=== PATIENT | female | born 1980 | race Caucasian/White ===

== ENCOUNTER → 2016-11-12 | Outpatient (CLI) | payer OTHER ==
--- NOTE | 2016-11-13 11:43 | WWHP ---
DATE OF SERVICE: 11/12/16 CHIEF COMPLAINT: The patient is here for her routine gynecological exam and mammogram. HISTORY OF PRESENT ILLNESS: This is a 36-year-old G3, P2, 0, 1, 2 with an LMP of 10/20/16. She is using condoms for control. She states she had an abnormal mammogram about three years ago. She had a screening mammogram at age 33 because of her family history of breast cancer. Right sided workup was felt to benign but she was supposed to have a six month mammogram on the right side which she did not have done. She states her left breast seems to have grown compared to the right breast. She has noticed this increase in size over the last three months. She does believe her left breast always was slightly larger than the right side but it has become more pronounced during the past three months. She thinks she may have noticed a slight discharge from the breast when she was in the shower once or twice but there was no blood. She denies any leakage without any type of breast stimulation. She also has noticed that both breasts have been more sore during the past few months and the soreness is greater on the left side. PAST MEDICAL HISTORY: Unremarkable. Medications: Multivitamin daily. ALLERGIES: VICODIN which caused vomiting and dizziness. PAST SURGICAL HISTORY: times two in 2010 and 2015. PAST OB HISTORY: Two C-sections and one spontaneous in 2011. PAST BAGGAGE SCREENER HISTORY: She did have laser removal of genital warts in 1997 and denies any other STDs. Menses are regular every month. SOCIAL HISTORY: She denies tobacco and drug use and has 0 to 1 alcoholic drinks per month. She is single but has been with her boyfriend since about 2008 and lives with him. 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 FAMILY HISTORY: She has two grandmothers who had breast cancer in their 30s. Also a sister who had skin cancer. Father had COPD and a grandmother had diabetes. REVIEW OF SYSTEMS: Weight has been stable. She denies respiratory, cardiac or GI problems. PHYSICAL EXAM: Blood pressure 124/70. Height 5 feet 2 1/2 inches. Weight 204 pounds. Temperature 96.7. Pulse 68. This is a well developed, heavyset white female who is alert and oriented times three in no acute distress. HEENT: is within normal limits. Neck is supple without mass or thyromegaly. Chest and lungs clear to auscultation. Heart is regular rate and rhythm. Breasts: Without mass or discharge. The left breast is slightly greater than the left breast. There are no palpable masses. There is no unusual puckering or dimpling. Both breasts are minimally tender. Axillary exam is negative for adenopathy. Back negative for CVA tenderness. Abdomen is soft and nontender without palpable masses. Pelvic exam, normal external genitalia. Cervix and vagina appears normal. There is no evidence of prolapse. Uterus is mid position, multiparous, nongravid size and nontender. There are no palpable adnexal masses or tenderness. Rectal exam negative for mass or tenderness. Extremities nontender. IMPRESSION: 1. A 36 year old menopausal female with normal gynecological exam. 2. History of abnormal mammogram in 2013 without the recommended follow-up. 3. The patient feels the left breast has grown disproportionately larger than the right breast without any significant physical findings other than the left breast being slightly larger than the right breast. 4. Bilateral breast soreness which has been fairly constant during the past two to three months per the patient. PLAN: 1. Pap smear was performed. 2. Self breast examination was discussed. 3. Bilateral diagnostic mammogram will be done because of the breast soreness and changes noted by the patient as well as family history. 4. We have discussed the various options for control including male and female sterilization as well as oral contraception. The patient would like to continue using condoms at this time, but will let me know if she is interested in any other method of control. 5. She will return in one year and prn. MTDD
== END | disposition home or self-care (01) ==
LOC: WWCWWP 15:10
PROVIDERS: ATTEND Obstetrics & Gynecology
DX: Z01.419 Encounter for gynecological examination (general) (routine) without abnormal findings (principal)

== ENCOUNTER → 2016-11-19 | Outpatient (CLI) | payer OTHER ==
--- NOTE | 2016-11-20 07:03 | MM ---
Reason for exam: clinical finding. Last mammogram was performed 3 years and 3 months ago. History: Patient had first child at age 30. Family history of breast cancer in paternal grandmother at age 40. Indicated problem(s): pain in both breasts. Physical Findings: Nurse did not find any significant physical abnormalities on exam. MG Diagnostic Mammo w CAD CHHAYA Bilateral CC and MLO view(s) were taken. Prior study comparison: August 26, 2013, right breast MG work up mamm w CAD RT. August 20, 2013, bilateral MG screening mammo w CAD. There are scattered fibroglandular densities. There is no discrete abnormality. No significant new findings when compared with previous films. These results were verbally communicated with the patient and result sheet given to the patient on 11/19/16. ASSESSMENT: Negative, BI-RAD 1 RECOMMENDATION: Routine screening mammogram of both breasts at age 38. Manage patient on a clinical basis.
== END | disposition home or self-care (01) ==
LOC: RADMAMWWP 14:17
PROVIDERS: ATTEND Obstetrics & Gynecology
DX: N64.4 Mastodynia (principal)

== ENCOUNTER → 2018-01-20 | Outpatient (CLI) | payer OTHER ==
[2018-01-20 13:02] VITALS: BP 118/72; PULSE 79; TEMP 96.6; BMI 34.2
--- NOTE | 2018-01-20 14:00 | P.HPOB ---
History of Present Illness H&P Date: 01/20/18 Chief Complaint: The patient is here for her routine gynecologic exam and mammogram. This is a 37-year-old with an LMP of 01/19/2018. Patient had a LGSIL Pap smear last year and underwent a colposcopic examination on 12/15/2016 which showed low grade ISAIAH with biopsy. The patient states she has had a history of dyspareunia since her 8 years ago. She states her partner would cause discomfort when his penis was not anterior or posterior in the vagina. One time when it did cause discomfort, the patient suddenly no longer had this type of dyspareunia except with very deep penetration. Now she only notices it occasionally with deep penetration. She is interested in getting something for control, but does not want to take control pills since she often forgot to take the pills. Review of Systems The patient has lost 17 pounds over the last year. She denies respiratory, cardiac, or G.I. problems. Past Medical History Past Medical History: Asthma History of Any Multi-Drug Resistant Organisms: None Reported Past Surgical History: Section (x2) Past Anesthesia/Blood Transfusion Reactions: No Reported Reaction Past Psychological History: No Psychological Hx Reported Smoking Status: Never smoker Past Alcohol Use History: None Reported Past Drug Use History: None Reported Additional History: She's been with her boyfriend since 2008 and lives with him. 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 - Past Family History Mother Family Medical History: No Reported History Additional Family Medical History / Comment(s): Maternal grandmother had breast cancer. Father Family Medical History: No Reported History Additional Family Medical History / Comment(s): Paternal grandmother and breast cancer. Sister(s) Family Medical History: Cancer (Skin cancer) Medications and Allergies Home Medications Medication Instructions Recorded Confirmed Type Multivitamin [Multivitamins Adult PO DAILY 01/20/18 History Gummies] Phentermine HCl [Adipex P] PO DAILY 01/20/18 History Allergies Allergy/AdvReac Type Severity Reaction Status Date / Time acetaminophen [From Vicodin] AdvReac Nausea Verified 01/20/18 12:59 hydrocodone bitartrate AdvReac Nausea Verified 01/20/18 12:59 [From Vicodin] Exam Vital Signs Temp Pulse BP 01/20/18 13:00 96.6 F L 79 118/72 Intake and Output 01/19/18 01/20/18 01/20/18 22:59 06:59 14:59 Other: Weight 84.822 kg Height 5'2", weight 187 pounds, BMI 34.2. This is a well-developed well-nourished white female who is alert and oriented times 3 in no acute distress. HEENT: Within normal limits. NECK: Supple without mass or thyromegaly. CHEST AND LUNGS: Clear to auscultation. HEART: Regular rate and rhythm. BREASTS: Are without mass or discharge. AXILLARY EXAM: Negative for adenopathy. BACK: Negative for CVA tenderness. ABDOMEN: Soft, nontender, without palpable masses. PELVIC EXAM: Normal external genitalia. Cervix and vagina appear normal with small menstrual blood in the back of the vagina. There is no cervical motion tenderness. There is no unusual discharge. There is no evidence of prolapse. The uterus is midposition, nongravid size and nontender. There are no palpable adnexal masses or tenderness. RECTAL EXAM: negative for mass or tenderness . EXTREMITIES: Nontender. IMPRESSION: 1. 37-year-old female with normal gynecologic exam requesting control. 2. Occasional deep dyspareunia which is actually improved recently. 3. Previous low-grade ISAIAH Pap smear and colposcopy 1 year ago. 4. Family history of breast cancer in both grandmothers. PLAN: 1. Pap smear was performed because of her low-grade ISAIAH findings last year. 2. Self breast awareness was discussed with the patient. 3. Screening mammogram will be done today because of her family history. 4. Negative Valsalva exercises prior to sexual activity. If she continues to have deep dyspareunia, she was instructed to call. We'll consider pelvic ultrasound if this is the case. 5. We discussed various options for control including IUD, Nuvaring, and control pills. We also discussed male and female sterilization. She would like a trial of the Nuvaring. She was counseled on how to use this for control. She will start this today. We have discussed possible risks including slight risk for blood clots. The electronic prescription will be sent to [facility] pharmacy. 6. She will return in one year and PRN.
--- NOTE | 2018-01-22 09:32 | MM ---
Reason for exam: screening (asymptomatic). Last mammogram was performed 1 year and 2 months ago. History: Patient had first child at age 30. Family history of breast cancer in paternal grandmother at age 40. Physical Findings: A clinical breast exam by your physician is recommended on an annual basis and results should be correlated with mammographic findings. MG Screening Mammo w CAD Bilateral CC and MLO view(s) were taken. Prior study comparison: November 19, 2016, bilateral MG diagnostic mammo w CAD CHHAYA. August 26, 2013, right breast MG work up mamm w CAD RT. There are scattered fibroglandular densities. No suspicious abnormality. No significant changes when compared with prior studies. ASSESSMENT: Negative, BI-RAD 1 RECOMMENDATION: Routine screening mammogram of both breasts in 1 year.
== END | disposition home or self-care (01) ==
LOC: WWCWWP 12:33
PROVIDERS: ATTEND Obstetrics & Gynecology
DX: Z12.31 Encounter for screening mammogram for malignant neoplasm of breast (principal)
CPT/HCPCS: 77067

== ENCOUNTER → 2019-03-03 | Outpatient (CLI) | payer OTHER ==
[2019-03-03 10:58] VITALS: BP 118/84; PULSE 67; RESP 16; TEMP 98.1
--- NOTE | 2019-03-03 11:40 | P.HPOB ---
History of Present Illness H&P Date: 03/03/19 Chief Complaint: The patient is here for her routine gynecologic exam and ma mmogram. This is a 38-year-old 012 with an LMP of 02/28/2019. The patient had used the NuvaRing for control, but did run out a few months ago. She would like to be restarted on the NuvaRing. She is without gynecologic complaints. She had a previous low-grade ISAIAH colposcopic biopsy in 2017. This was followed conservatively. Her last Pap smear on 01/20/2018 with cytology only and was negative. Review of Systems The patient has lost 3 pounds over the past year. She denies respiratory or cardiac problems. GI: Occasionally feels gassy. Past Medical History Past Medical History: Asthma Additional Past Medical History / Comment(s): Ovarian cyst, UTI. 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 History of Any Multi-Drug Resistant Organisms: None Reported Past Surgical History: Section Additional Past Surgical History / Comment(s): C section x 2 Past Anesthesia/Blood Transfusion Reactions: No Reported Reaction Past Psychological History: No Psychological Hx Reported Additional Psychological History / Comment(s): Pt resides with her significant other and 2 children, ages 2 yrs and 7 yrs. Pt is employed at [employer]. Smoking Status: Never smoker Past Alcohol Use History: Rare (1 per month) Past Drug Use History: None Reported Additional History: She lives with her boyfriend and has been with him since 2008. 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 - Past Family History Mother Family Medical History: No Reported History Additional Family Medical History / Comment(s): Maternal grandmother had breast cancer. Father Family Medical History: Congestive Heart Failure (CHF), COPD Additional Family Medical History / Comment(s): Paternal grandmother and breast cancer. Sister(s) Family Medical History: Cancer Additional Family Medical History / Comment(s): Skin cancer. Medications and Allergies Home Medications Medication Instructions Recorded Confirmed Type Cetirizine HCl [Zyrtec] 10 mg PO DAILY PRN 02/24/18 03/03/19 History Multivitamin,Therapeutic [Thera] 1 tab PO DAILY 02/24/18 03/03/19 History Ascorbic Acid [Vitamin C] 500 mg PO DAILY 03/03/19 03/03/19 History Allergies Allergy/AdvReac Type Severity Reaction Status Date / Time acetaminophen [From Vicodin] AdvReac Nausea Verified 03/03/19 10:58 hydrocodone bitartrate AdvReac Nausea Verified 03/03/19 10:58 [From Vicodin] Exam Vital Signs Temp Pulse Resp BP Pulse Ox 03/03/19 10:53 98.1 F 67 16 118/84 100 Intake and Output 03/02/19 03/03/19 03/03/19 22:59 06:59 14:59 Other: Weight 83.461 kg Height 5 feet 2 inches, weight 184 pounds, BMI 33.7. This is a well-developed well-nourished white female who is alert and oriented times 3 in no acute distress. HEENT: Within normal limits. NECK: Supple without mass or thyromegaly. CHEST AND LUNGS: Clear to auscultation. HEART: Regular rate and rhythm. BREASTS: Are without mass or discharge. AXILLARY EXAM: Negative for adenopathy. BACK: Negative for CVA tenderness. ABDOMEN: Soft, nontender, without palpable masses. PELVIC EXAM: Normal external genitalia. Cervix and vagina appear normal. There is a small amount of menstrual blood. There is no unusual discharge. There is no evidence of prolapse. The uterus is midposition, nongravid size and nontender. There are no palpable adnexal masses or tenderness. RECTAL EXAM: negative for mass or tenderness and is negative for occult blood. EXTREMITIES: Nontender. IMPRESSION: 1. 38-year-old female with normal gynecologic exam. 2. The patient is requesting to be restarted on the NuvaRing for control. She stopped it after her prescription ran out. 3. History of low-grade ISAIAH colposcopic biopsy in 2017. Her last Pap smear was cytology only on 01/20/2018 and was negative. PLAN: 1. Pap smear with high-risk HPV testing will be done today (cotest). If both of these are negative, we will repeat Pap smear in 2-3 years. 2. Self breast awareness was discussed with the patient. 3. Screening mammogram will be done today. 4. The patient will be restarted on the NuvaRing. She will one in today since she is on her menstrual period which started 3 days ago. She was advised to use an alternate method of control during the first month since she is not starting at on the first day of her menstrual period. She will use it as directed. The prescription will be sent to my her pharmacy in [place]. 5. She was advised to return in one year for her annual well woman exam.
--- NOTE | 2019-03-05 12:25 | MM ---
Reason for exam: screening (asymptomatic). Last mammogram was performed 1 year and 1 month ago. History: Patient had first child at age 30. Family history of breast cancer in paternal grandmother at age 40. Physical Findings: A clinical breast exam by your physician is recommended on an annual basis and results should be correlated with mammographic findings. MG Screening Mammo w CAD Bilateral CC and MLO view(s) were taken. Prior study comparison: January 20, 2018, bilateral MG screening mammo w CAD. November 19, 2016, bilateral MG diagnostic mammo w CAD CHHAYA. The breast tissue is heterogeneously dense. This may lower the sensitivity of mammography. No significant changes when compared with prior studies. ASSESSMENT: Benign, BI-RAD 2 RECOMMENDATION: Routine screening mammogram of both breasts in 1 year.
--- NOTE | 2019-03-16 10:30 | P.PN ---
Progress Note - Text Progress Note Date: 03/16/19 OUTPATIENT FOLLOW-UP NOTE TEST(S)/RESULTS: test results from 03/03/2019 include benign mammogram and Pap smear showing ASCUS with negative high risk HPV. METHOD OF NOTIFICATION: the patient was notified by phone. PATIENT COMMENTS: DIAGNOSIS: ASCUS Pap smear with negative high-risk HPV testing. DISCUSSION: the patient had a previous low-grade ISAIAH Pap smear in 2017 and colposcopic biopsy also showed low-grade ISAIAH. Pap smear cytology alone last year was negative. With the history of previous low-grade IASIAH by colposcopic biopsy in 2017 and negative Pap smear last year, we have decided to repeat the Pap smear with high-risk HPV testing in 1 year. PLAN: She was advised to return in one year for her annual well woman exam. Co- test pap in one year.
== END | disposition home or self-care (01) ==
LOC: WWCWWP 10:48
PROVIDERS: ATTEND Obstetrics & Gynecology
DX: Z12.31 Encounter for screening mammogram for malignant neoplasm of breast (principal)
CPT/HCPCS: 77067

== ENCOUNTER → 2021-06-12 | Outpatient (CLI) | payer OTHER ==
[2021-06-12 12:58] VITALS: BP 111/76; PULSE 74; RESP 17; TEMP 98.5
--- NOTE | 2021-06-12 13:48 | P.HPOB ---
History of Present Illness H&P Date: 06/12/21 Chief Complaint: The patient is here for her routine gynecologic exam and ma mmogram. This is a 40-year-old 012 with an LMP of 06/07/2021. The patient has been using condoms for control. She no longer is using the NuvaRing ring. The patient states she has had deep dyspareunia for many years. She believes this has been since her first delivery 11 years ago. It seems to be only with deep penetration and is felt in the midline. This can last for a few minutes. Occasionally she will notice a similar type of pain when she is laughing or sitting in a certain position. She did not notice any difference when she was using the NuvaRing for control. She denies any GI or urinary symptoms. Review of Systems She is getting about 9 pounds over the past 2 years. She denies respiratory, cardiac, or GI problems. 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 History of Any Multi-Drug Resistant Organisms: None Reported Past Surgical History: Section Additional Past Surgical History / Comment(s): C section x 2 Past Anesthesia/Blood Transfusion Reactions: No Reported Reaction Past Psychological History: No Psychological Hx Reported Additional Psychological History / Comment(s): Pt resides with her significant other and 2 children, ages 2 yrs and 7 yrs. Pt is employed at [employer]. Smoking Status: Never smoker Past Alcohol Use History: Rare (1 per month) Past Drug Use History: None Reported Additional History: She lives with her boyfriend and has been with him since 2008. 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 - Past Family History Mother Family Medical History: No Reported History Additional Family Medical History / Comment(s): Maternal grandmother had breast cancer. Father Family Medical History: Congestive Heart Failure (CHF), COPD Additional Family Medical History / Comment(s): Paternal grandmother and breast cancer. Sister(s) Family Medical History: Cancer Additional Family Medical History / Comment(s): Skin cancer. Medications and Allergies Home Medications Medication Instructions Recorded Confirmed Type Cetirizine HCl [Zyrtec] 10 mg PO DAILY PRN 02/24/18 06/12/21 History Multivitamin,Therapeutic [Thera] 1 tab PO DAILY 02/24/18 06/12/21 History Ascorbic Acid [Vitamin C] 500 mg PO DAILY 03/03/19 06/12/21 History Allergies Allergy/AdvReac Type Severity Reaction Status Date / Time acetaminophen [From Vicodin] AdvReac Nausea Verified 06/12/21 12:51 hydrocodone bitartrate AdvReac Nausea Verified 06/12/21 12:51 [From Vicodin] Exam Vital Signs Temp Pulse Resp BP Pulse Ox 06/12/21 12:55 98.5 F 74 17 111/76 100 Intake and Output 06/11/21 06/12/21 06/12/21 22:59 06:59 14:59 Other: Weight 88.451 kg Height 5 feet 2 inches, weight 195 pounds, BMI 35.7. This is a well-developed well-nourished white female who is alert and oriented times 3 in no acute distress. HEENT: Within normal limits. NECK: Supple without mass or thyromegaly. CHEST AND LUNGS: Clear to auscultation. HEART: Regular rate and rhythm. BREASTS: Are without mass or discharge. AXILLARY EXAM: Negative for adenopathy. BACK: Negative for CVA tenderness. ABDOMEN: Soft, with minimal suprapubic tenderness, without palpable masses. PELVIC EXAM: Normal external genitalia. Cervix and vagina appear normal. There is a small amount of old menstrual blood in the vagina. There is no unusual discharge. There is no evidence of prolapse. The uterus is midposition, nongravid size and nontender. There are no palpable adnexal masses or tenderness. The pain associated with deep penetration could not be reproduced. RECTAL EXAM: Rectovaginal exam is negative for mass or tenderness and is negative for occult blood. EXTREMITIES: Nontender. IMPRESSION: 1. 40-year-old female using condoms for control, with long history of intermittent deep dyspareunia. There are no significant physical findings on exam today. 2. Previous Pap smear showing ASCUS with negative high-risk HPV testing on 03/03/2019. PLAN: 1. Pap smear cotest was performed. 2. Self breast awareness was discussed with the patient. We have also discussed symptoms associated with inflammatory breast cancer. 3. Screening mammogram will be done today. 4. Pelvic ultrasound will be ordered. The order slip was given to the patient for this. 5. We have discussed possible causes for deep dyspareunia ranging from uterine fibroid, ovarian cyst, minor trauma to the cervix causing ligament stretch, adhesions, endometriosis, as well as other non-gynecologic causes. If the ultrasound is unremarkable, consider referral for possible laparoscopic examination. 6. She was advised to return in one year for her annual well woman exam and as needed.
--- NOTE | 2021-06-13 13:56 | MM ---
Reason for exam: screening (asymptomatic). Last mammogram was performed 2 years and 3 months ago. History: Patient had first child at age 30. Family history of breast cancer in paternal grandmother at age 40. Physical Findings: A clinical breast exam by your physician is recommended on an annual basis and results should be correlated with mammographic findings. MG Screening Mammo w CAD Bilateral CC and MLO view(s) were taken. Prior study comparison: March 03, 2019, bilateral MG screening mammo w CAD. January 20, 2018, bilateral MG screening mammo w CAD. The breast tissue is heterogeneously dense. This may lower the sensitivity of mammography. There is no discrete abnormality. No significant changes when compared with prior studies. ASSESSMENT: Negative, BI-RAD 1 RECOMMENDATION: Routine screening mammogram of both breasts in 1 year.
== END | disposition home or self-care (01) ==
LOC: WWCWWP 12:45
PROVIDERS: ATTEND Obstetrics & Gynecology
DX: Z12.31 Encounter for screening mammogram for malignant neoplasm of breast (principal)
CPT/HCPCS: 77067

== ENCOUNTER → 2021-08-03 | Outpatient (CLI) | payer OTHER ==
--- NOTE | 2021-08-03 14:51 | US ---
EXAMINATION TYPE: US pelvic complete DATE OF EXAM: 08/03/2021 COMPARISON: NONE CLINICAL HISTORY: N94.1 Dyspareunia. Pain during intercourse x 11 years, 3, para 2, miscarria ge 1, history of 2 c-sections. TECHNIQUE: . Transabdominal sonographic images of the pelvis were acquired. Date of LMP: 07/27/2021 EXAM MEASUREMENTS: Uterus: 8.4 x 3.9 x 4.9 cm Endometrial Stripe: 0.7 cm Right Ovary: 3.1 x 1.6 x 2.1 cm Left Ovary: 2.8 x 1.7 x 1.8 cm 1. Uterus: anteverted 2. Endometrium: wnl 3. Right Ovary: wnl 4. Left Ovary: wnl 5. Bilateral Adnexa: wnl 6. Posterior cul-de-sac: wnl IMPRESSION: No significant abnormality seen.
== END | disposition home or self-care (01) ==
LOC: RADUSWWP 14:08
PROVIDERS: ATTEND Obstetrics & Gynecology
DX: N95.1 Menopausal and female climacteric states (principal)
CPT/HCPCS: 76856

== ENCOUNTER → 2022-11-07 | Outpatient (CLI) | payer OTHER ==
--- NOTE | 2022-11-07 14:42 | P.PN ---
Progress Note - Text Progress Note Date: 11/07/22 The patient has called today requesting to be restarted on oral contraception. She has been on oral contraception without problems in the past. She states she is in a new relationship and she would like to restart control pills for this reason. Her menstrual periods are regular every month. Her LMP was on 10/19/2022. She expects her next menstrual period to be next week. She denies any medical problems including hypertension or blood clots. We have discussed oral contraception including possible side effects such as nausea, breast tenderness, and headache. We will also discussed possible risks such as blood clots in the leg or lung, as well as heart attack and stroke. She denies smoking. The patient will be started on Tri-Sprintec one by mouth daily. She is to start the first pack on the Friday following the onset of her next normal menstrual period. I recommended that she use condoms. She understands she may not be fully protected during the first pack of pills. All of her questions were answered. She also has an annual exam appointment on 11/26/2022. The electronic prescription for Tri-Sprintec will be sent to my her pharmacy in [place]. This will be for one pack. We will plan on refilling the prescription at the time of her annual examination.
== END ==
LOC: WWCWWP 14:37
PROVIDERS: ATTEND Obstetrics & Gynecology
DX: Z04.89 Encounter for examination and observation for other specified reasons (principal); Z88.5 Allergy status to narcotic agent; Z88.8 Allergy status to other drugs, medicaments and biological substances

== ENCOUNTER → 2022-11-26 | Outpatient (CLI) | payer OTHER ==
[2022-11-26 15:22] VITALS: BP 124/86; PULSE 54; RESP 17; TEMP 98.1
--- NOTE | 2022-11-26 16:12 | P.HPOB ---
History of Present Illness H&P Date: 11/26/22 Chief Complaint: The patient is here for her routine gynecologic exam and ma mmogram. This is a 42-year-old 012 with an LMP of 11/16/2022. She is on oral contraception for control. This was started earlier this month. She is without gynecologic complaints. Review of Systems The patient has lost 8 pounds over the last year. She denies respiratory, cardiac, or G.I. problems. 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 History of Any Multi-Drug Resistant Organisms: None Reported Past Surgical History: Section Additional Past Surgical History / Comment(s): C section x 2 Past Anesthesia/Blood Transfusion Reactions: No Reported Reaction Past Psychological History: No Psychological Hx Reported Additional Psychological History / Comment(s): Pt resides with her significant other and 2 children, ages 2 yrs and 7 yrs. Pt is employed at [employer]. Smoking Status: Never smoker Past Alcohol Use History: Occasional (1 or 2 per week.) Past Drug Use History: None Reported Additional History: She has been with her boyfriend since September 2022. She does not live with him. 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 - Past Family History Mother Family Medical History: No Reported History Additional Family Medical History / Comment(s): Maternal grandmother had breast cancer. Father Family Medical History: Congestive Heart Failure (CHF), COPD Additional Family Medical History / Comment(s): Paternal grandmother and breast cancer. Sister(s) Family Medical History: Cancer Additional Family Medical History / Comment(s): Skin cancer. Medications and Allergies Home Medications Medication Instructions Recorded Confirmed Type Cetirizine HCl [Zyrtec] 10 mg PO DAILY PRN 02/24/18 11/26/22 History Multivitamin,Therapeutic [Thera] 1 tab PO DAILY 02/24/18 11/26/22 History Ascorbic Acid [Vitamin C] 500 mg PO DAILY 03/03/19 11/26/22 History norgestimate-ethinyl estradioL 1 each PO DAILY #28 tablet 11/07/22 11/26/22 Rx [Tri-Sprintec Tablet] Allergies Allergy/AdvReac Type Severity Reaction Status Date / Time acetaminophen [From Vicodin] AdvReac Nausea Verified 11/26/22 15:15 hydrocodone bitartrate AdvReac Nausea Verified 11/26/22 15:15 [From Vicodin] Exam Vital Signs Temp Pulse Resp BP Pulse Ox 11/26/22 15:19 98.1 F 54 L 17 124/86 99 Intake and Output 11/26/22 11/26/22 11/26/22 06:59 14:59 22:59 Other: Weight 84.822 kg Height 5 feet 2 inches, weight 187 pounds, BMI 34.2. This is a well-developed well-nourished white female who is alert and oriented times 3 in no acute distress. HEENT: Within normal limits. NECK: Supple without mass or thyromegaly. CHEST AND LUNGS: Clear to auscultation. HEART: Regular rate and rhythm. BREASTS: Are without mass or discharge. AXILLARY EXAM: Negative for adenopathy. BACK: Negative for CVA tenderness. ABDOMEN: Soft, nontender, without palpable masses. PELVIC EXAM: Normal external genitalia. Cervix and vagina appear normal. There is no unusual discharge. There is no evidence of prolapse. The uterus is midposition, nongravid size and nontender. There are no palpable adnexal masses or tenderness. RECTAL EXAM: negative for mass or tenderness and is negative for occult blood. EXTREMITIES: Nontender. IMPRESSION: 1. 42-year-old female on oral contraception with normal gynecologic exam. 2. Previous colposcopic examination in 2018 showing low-grade ISAIAH with negative Pap smear in 2018, ASCUS Pap smear with negative HPV testing in 2019 and 2021. PLAN: 1. Pap smear cotest was performed as per the ASCCP management guidelines. 2. Self breast awareness was discussed with the patient. We have also discussed symptoms associated with inflammatory breast cancer. 3. Screening mammogram was done today. 4. STD prevention was discussed. I have stressed importance of limiting sexual partners and I recommended condom use if she is sexually active. 5. She will continue oral contraception. We have reviewed the importance of not smoking. We have also discussed the slight increased risk for blood clots with oral contraception. The prescription for Tri-Sprintec will be sent to [facility] pharmacy in [place]. 6. She was advised to return in one year for her annual well woman exam.
--- NOTE | 2022-11-27 10:09 | MM ---
Reason for Exam: Screening (asymptomatic). Last mammogram was performed 1 year(s) and 5 month(s) ago. Patient History: Menarche at age 9. First Full-Term at age 30. Late child-bearing (after 30). Paternal grandmother had breast cancer, age 40. Risk Values: Donna 5 year model risk: 1.2%. NCI Lifetime model risk: 14.3%. Prior Study Comparison: 01/20/2018 Bilateral Screening Mammogram, [facility]. 03/03/2019 Bilateral Screening Mammogram, [facility]. 06/12/2021 Bilateral Screening Mammogram, [facility]. Tissue Density: The breast tissue is heterogeneously dense. This may lower the sensitivity of mammography. Findings: Analyzed By CAD. There is no suspicious group of microcalcifications or new suspicious mass in either breast. Overall Assessment: Negative, BI-RAD 1 Management: Screening Mammogram of both breasts in 1 year. A clinical breast exam by your physician is recommended on an annual basis and results should be correlated with mammographic findings. Note on Donna scores and lifetime risk: 1. A Donna score greater than 3% is considered moderate risk. If this is the case, consider specialist referral to assess eligibility for a risk reducing agent. If overall lifetime risk for the development of breast cancer is 20% or higher, the patient may qualify for future screening with alternating mammogram and breast MRI. Electronically signed and approved by: Davi Coleman D.O.
== END | disposition home or self-care (01) ==
LOC: RADMAMWWP 14:42
PROVIDERS: ATTEND Obstetrics & Gynecology
DX: Z01.419 Encounter for gynecological examination (general) (routine) without abnormal findings (principal); Z12.31 Encounter for screening mammogram for malignant neoplasm of breast; Z80.3 Family history of malignant neoplasm of breast; Z82.49 Family history of ischemic heart disease and other diseases of the circulatory system; J45.909 Unspecified asthma, uncomplicated
CPT/HCPCS: 77067

== ENCOUNTER → 2023-12-16 | Outpatient (CLI) | payer OTHER ==
[2023-12-16 14:10] VITALS: BP 133/84; PULSE 65; RESP 15; TEMP 98.5
--- NOTE | 2023-12-16 15:08 | P.HPOB ---
History of Present Illness H&P Date: 12/16/23 Chief Complaint: The patient is here for her routine gynecologic exam and ma mmogram. This is a 43-year-old -0-1-2 with an LMP of 12/09/2023. The patient is on Tri-Sprintec for control. She states she also uses condoms. She states she is doing well with the control pill and would like to continue using this. She is without gynecologic complaints. She broke up with her boyfriend past year and is requesting STD testing. She currently does not have a khadijah yfriend. Review of Systems The patient's weight has been stable over the last year. She denies respiratory, cardiac, or G.I. problems. 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 History of Any Multi-Drug Resistant Organisms: None Reported Past Surgical History: Section Additional Past Surgical History / Comment(s): C section x 2 Past Anesthesia/Blood Transfusion Reactions: No Reported Reaction Past Psychological History: No Psychological Hx Reported Additional Psychological History / Comment(s): Pt resides with her significant other and 2 children. Smoking Status: Never smoker Past Alcohol Use History: Occasional Past Drug Use History: None Reported Additional History: She is single and is currently not seeing anybody at this time. 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 - Past Family History Mother Family Medical History: No Reported History Additional Family Medical History / Comment(s): Maternal grandmother had breast cancer. Father Family Medical History: Congestive Heart Failure (CHF), COPD Additional Family Medical History / Comment(s): Paternal grandmother and breast cancer. Sister(s) Family Medical History: Cancer Additional Family Medical History / Comment(s): Skin cancer. Medications and Allergies Home Medications Medication Instructions Recorded Confirmed Type Cetirizine HCl [Zyrtec] 10 mg PO DAILY PRN 02/24/18 12/16/23 History norgestimate-ethinyl estradioL 1 each PO DAILY #84 tablet 11/26/22 12/16/23 Rx [Tri-Sprintec Tablet] Allergies Allergy/AdvReac Type Severity Reaction Status Date / Time acetaminophen [From Vicodin] AdvReac Nausea Verified 12/16/23 14:07 hydrocodone bitartrate AdvReac Nausea Verified 12/16/23 14:07 [From Vicodin] Exam Vital Signs Temp Pulse Resp BP Pulse Ox 12/16/23 14:08 98.5 F 65 15 133/84 100 Intake and Output 12/16/23 12/16/23 12/16/23 06:59 14:59 22:59 Other: Weight 85.275 kg Height 5 feet 2 inches, weight 188 pounds, BMI 34.4. This is a well-developed well-nourished white female who is alert and oriented times 3 in no acute distress. HEENT: Within normal limits. NECK: Supple without mass or thyromegaly. CHEST AND LUNGS: Clear to auscultation. HEART: Regular rate and rhythm. BREASTS: Are without mass or discharge. AXILLARY EXAM: Negative for adenopathy. BACK: Negative for CVA tenderness. ABDOMEN: Soft, nontender, without palpable masses. PELVIC EXAM: Normal external genitalia. Cervix and vagina appear normal. There is no unusual discharge. There is no evidence of prolapse. There is no cervical motion tenderness. The uterus is midposition, nongravid size and nontender. There are no palpable adnexal masses or tenderness. RECTAL EXAM: negative for mass or tenderness and is negative for occult blood. EXTREMITIES: Nontender. IMPRESSION: 1. 43-year-old female doing well on oral contraception. 2. History of abnormal Pap smears in the past. Colposcopic examination in 2017 showed low-grade ISAIAH. 2018 Pap smear is negative, 2019 Pap smear showed ASCUS with negative high-risk HPV testing. 06/12/2021 Pap smear again showed ASCUS with negative high risk HPV testing. Her Pap smear cotest on 11/26/2022 was negative. 3. Patient broke up with her boyfriend during the past year and is requesting STD testing without symptoms. 4. Doing well on oral contraception. PLAN: 1. Pap smear cotest was performed. She will be managed using the ASCCP management guidelines. 2. Self breast awareness was discussed with the patient. We have also discussed symptoms associated with inflammatory breast cancer. 3. Screening mammogram will be done today. 4. GC and Chlamydia testing were obtained from the cervix. Urine will be obtained for trichomonas testing. Blood STD tests will include HIV, RPR, hepatitis B surface antigen, and hepatitis C antibody. The order slip was given to the patient for these blood tests. She states she will have them done today. 5. STD prevention was discussed. I have stressed the importance of limiting sexual partners and I have recommended continuing to use condoms every time if she is sexually active. We have also discussed different options for control including tubal sterilization. 6. I have recommended that she establish with a new PCP since she is currently without 1. I have also recommended that she discuss with that PCP colorectal cancer screening and her different options. At this time she will continue Tri- Sprintec daily. The electronic prescription will be sent to [facility] pharmacy in [place]. 7. She was advised to return in one year for her annual well woman exam.
[2023-12-17 02:51] LABS: Hepatitis B Surface Antigen Nonreactive (Nonreactive); Hepatitis C IgG Antibody Nonreactive (Nonreactive)
[2023-12-17 05:20] LABS: HIV 2 AB Non-Reactive (Non-Reactive); HIV AB P24 Non-Reactive (Non-Reactive); HIV P24 AG Non-Reactive (Non-Reactive)
[2023-12-17 14:38] LABS: N. gonorrhoeae,PCR Negative (Negative)
[2023-12-17 14:53] LABS: C. trachomatis,PCR Negative (Negative)
== END ==
LOC: WWCWWP 13:51
PROVIDERS: ATTEND Obstetrics & Gynecology
DX: Z12.31 Encounter for screening mammogram for malignant neoplasm of breast (principal); Z11.3 Encounter for screening for infections with a predominantly sexual mode of transmission; Z80.3 Family history of malignant neoplasm of breast; Z88.1 Allergy status to other antibiotic agents; Z88.5 Allergy status to narcotic agent